=== PATIENT | female | born 1980 | race Two or more races ===

== ENCOUNTER 2019-11-03 19:16 | Emergency (ER) | payer OTHER ==
[~2019-11-03] VITALS: Ht 154.9 cm; Wt 80.1 kg
[2019-11-03 19:18] VITALS: BP 110/65
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
== END 2019-11-03 20:47 | disposition home or self-care (01) ==
LOC: ED 20:15
DX: S16.1XXA Strain of muscle, fascia and tendon at neck level, initial encounter (principal); M79.642 Pain in left hand; V49.09XA Driver injured in collision with other motor vehicles in nontraffic accident, initial encounter; Y93.89 Activity, other specified; Y92.413 State road as the place of occurrence of the external cause; Y99.8 Other external cause status
CPT/HCPCS: 72125; 99284